=== PATIENT | male | born 2000 | race Caucasian/White ===

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

== ENCOUNTER 2019-05-14 13:16 | Emergency (ER) | payer BC ==
--- NOTE | 2019-05-14 13:48 | ED ---
Neurological HPI - HPI Summary HPI Summary: Pt is a 19 y/o M presenting to the ED brought in by EMS for a seizure. He states that for approximately 30min-1hr before this episode, he experienced unexplained jolts in different parts of his body. He went to the dining [place] to try and walk it off, where he then dropped his phone twice and then states that someone witnessed him have seizure-like activity. Pt states he hit his head, but he remembers most of the episode. He reports biting his tongue and a current slight headache. He denies incontinence, fever, vomiting, weakness, changes in vision, or FHx of seizure disorder. He has never had a seizure before. He denies drinking last night, but states he did smoke a little bit of marijuana. - History of Current Complaint Chief Complaint: EDSeizure Stated Complaint: SEIZURES PER EMS Time Seen by Provider: 05/14/19 13:22 Hx Obtained From: Patient Onset/Duration: Sudden Onset, Started hours ago, Resolved Timing: Intermittent Episodes Lasting: - minutes Onset Severity: Moderate Current Severity: None Seizure Severity: Moderate Pain Intensity: 0 Pain Scale Used: 0-10 Numeric Episode Lasting: Seconds/Minutes Syncope Context: Witnessed, Associated Head Trauma Seizure Character: Generalized Aggravating: Unknown Alleviating: Spontanious Resolution Associated Signs and Symptoms: Positive: Headache. Negative: Visual Changes, Weakness, Nausea/Vomiting, Fever, Recent Illness TPA Considered: No - Allergy/Home Medications Allergies/Adverse Reactions: Allergies Allergy/AdvReac Type Severity Reaction Status Date / Time No Known Allergies Allergy Verified 05/14/19 13:36 Home Medications: Home Medications NK [No Home Medications Reported] 05/14/19 [History Confirmed 05/14/19] PMH/Surg Hx/FS Hx/Imm Hx Previously Healthy: Yes Endocrine/Hematology History: Denies: Hx Diabetes Cardiovascular History: Denies: Hx Hypertension Respiratory History: Denies: Hx Asthma Sensory History: Denies: Hx Deafness - Cancer History Cancer Type, Location and Year: None - Surgical History Surgery Procedure, Year, and Place: None reported Infectious Disease History: No Infectious Disease History: Denies: Traveled Outside the [place] in Last 30 Days - Family History Known Family History: Positive: Other - mother has HLD Negative: Seizure Disorder - Social History Occupation: Student Lives: Dormitory/Roommates Alcohol Use: Weekly Hx Substance Use: Yes Substance Use Type: Reports: Marijuana Substance Use Comment - Amount & Last Used: daily Hx Tobacco Use: Yes Smoking Status (MU): Current Some Day Smoker Review of Systems Negative: Fever Eyes: Negative Negative: Vomiting Negative: incontinence Positive: Other - body jolting Neurological: Other - possible seizure Positive: Headache. Negative: Weakness All Other Systems Reviewed And Are Negative: Yes Physical Exam - Summary Physical Exam Summary: Constitutional: Well-developed, Well-nourished, Alert. (-) Distressed Skin: Warm, Dry HENT: Normocephalic; Atraumatic Eyes: Conjunctiva normal Neck: Musculoskeletal ROM normal neck. (-) JVD, (-) Stridor, (-) Tracheal deviation Cardio: Rhythm regular, rate normal, Heart sounds normal; Intact distal pulses. Radial pulses are 2+ and symmetric. (-) Murmur Pulmonary/Chest wall: Effort normal. (-) Respiratory distress, (-) Wheezes, (-) Rales Abd: Soft. (-) Tenderness, (-) Distension, (-) Guarding, (-) Rebound Musculoskeletal: (-) Edema Lymph: (-) Cervical adenopathy Neuro: Alert, Oriented x3, Strength normal, Cranial nerves II-XII are grossly intact. (-) Dysmetria, (-) Nystagmus, (-) Ataxia by finger to nose testing, (-) Sensory deficit. Psych: Mood and affect Normal Triage Information Reviewed: Yes Vital Signs On Initial Exam: Initial Vitals Resp 10 05/14/19 13:19 Vital Signs Reviewed: Yes - Creola Coma Scale Best Eye Response: 4 - Spontaneous Best Motor Response: 6 - Obeys Commands Best Verbal Response: 5 - Oriented Coma Scale Total: 15 Procedures - Sedation Patient Received Moderate/Deep Sedation with Procedure: No Diagnostics - Vital Signs Vital Signs Temp Pulse Resp BP Pulse Ox 05/14/19 13:24 79 23 114/77 99 05/14/19 13:20 97.5 F 78 21 114/77 97 05/14/19 13:19 10 - Laboratory Result Diagrams: 05/14/19 14:16 05/14/19 14:16 Lab Statement: Any lab studies that have been ordered have been reviewed, and results considered in the medical decision making process. - CT Brain CT CT Interpretation Completed By: Radiologist Summary of CT Findings: No CT evidence for traumatic brain injury or acute intracranial process. Negative exam. ED physician has reviewed this report. - EKG 1322 Cardiac Rate: NL - 70bpm EKG Rhythm: Sinus Rhythm ST Segment: Normal Ectopy: None Summary of EKG Findings: EKG at 1322 shows NSR at 70bpm with Benign Early Repolarization. No STEMI. Course/Dx - Course Course Of Treatment: Patient is here with new onset seizure. Patient's Ulisses seizure before. Patient has had myoclonic jerking over the past 24 hours with no symptoms like this prior. Patient was confused this morning per parents but is a O 3 here with a normal neurologic exam. Patient had negative CT head. Patient Renetta performed which is grossly unremarkable. Neurology was consultation and they recommended following up in office for MRI and EEG. - Diagnoses Provider Diagnoses: New onset seizure, Concussion Discharge ED - Sign-Out/Discharge Documenting (check all that apply): Patient Departure - Discharge Plan Condition: Stable Disposition: HOME Patient Education Materials: Concussion (ED), New-Onset Seizure in Adults (ED) Forms: *School Release Referrals: [facility] @ [Outside] Royer Lowe MD [Medical Doctor] - Additional Instructions: Follow up with Dr. Lowe of neurology within the next 1-3 days for an MRI and an EEG. Please use the concussion management protocol we talked about. Also, do not drive your car within the next 6 months, or until cleared by your primary care provider or Dr. Lowe. Come back to the emergency department with any new or concerning symptoms, such as another seizure or increased confusion. - Billing Disposition and Condition Condition: STABLE Disposition: Home - Attestation Statements Document Initiated by Scribe: Yes Documenting Scribe: Sridevi Mancera Provider For Whom Joan is Documenting (Include Credential): Dorian Appiah MD. Scribe Attestation: Sridevi Sy, scribed for Dorian Appiah MD. on 05/14/19 at 1645. Scribe Documentation Reviewed: Yes Provider Attestation: The documentation as recorded by the scribe, Sridevi Mancera accurately reflects the service I personally performed and the decisions made by me, Dorian Appiah MD. Status of Scribe Document: Viewed
[2019-05-14 14:21] LABS: ABS Lymphocytes 0.7 10^3/ul (1.0-4.8); ABS Monocytes 0.6 10^3/ul (0-0.8); ABS Neutrophils 12.3 10^3/ul (1.5-7.7); Eosinophil % 0.3 %; Hematocrit 48 % (42-52); Hemoglobin 16.1 g/dL (14.0-18.0); Lymphocyte % 4.9 %; Mean Corpuscular HGB Conc 33 g/dL (31-36); Mean Corpuscular Hemoglobin 30 pg (27-31); Mean Corpuscular Volume 91 fL (80-94); Mean Platelet Volume 8.2 fL (7.4-10.4); Nucleated Red Blood Cells % 0.1; Platelet Count 242 10^3/uL (150-450); Red Cell Distribution Width 14 % (10-15); White Blood Count 13.7 10^3/uL (3.5-10.8)
[2019-05-14 14:37] LABS: ALT 17 U/L (7-52); AST 25 U/L (13-39); Albumin 4.8 g/dL (3.2-5.2); Albumin/Globulin Ratio 1.8 (1-3); Alkaline Phosphatase 69 U/L (34-104); Anion Gap 5 mmol/L (2-11); BUN/Creatinine Ratio 16.7 (8-20); Blood Urea Nitrogen 13 mg/dL (6-24); CO2 Carbon Dioxide 28 mmol/L (22-32); Calcium 9.9 mg/dL (8.6-10.3); Chloride 103 mmol/L (101-111); EGFR African American 153.5 (>60); EGFR Non-African American 126.9 (>60); Globulin 2.7 g/dL (2-4); Glucose 97 mg/dL (70-100); Potassium 4.9 mmol/L (3.5-5.0); Sodium 136 mmol/L (135-145); Total Protein 7.5 g/dL (6.4-8.9)
[2019-05-14 14:44] LABS: Alcohol < 10 mg/dL (<10)
[2019-05-14 15:41] VITALS: BP 109/80
== END 2019-05-14 15:52 | disposition home or self-care (01) ==
LOC: ED 13:16
DX: R56.9 Unspecified convulsions (principal); S06.0X9A Concussion with loss of consciousness of unspecified duration, initial encounter; W19.XXXA Unspecified fall, initial encounter; Y92.1 Institutional (nonprivate) residence as the place of occurrence of the external cause; F17.200 Nicotine dependence, unspecified, uncomplicated
CPT/HCPCS: 36415; 70450; 80053; 80320; 85025; 93005; 99283; G0480